=== PATIENT | male | born 1975 | race Caucasian/White ===

== ENCOUNTER → 2017-03-28 | Outpatient (CLI) | payer OTHER ==
[~2017-03-28] MED LIST: ACETTAB19 PO; HYDR-4330 PO
[2017-03-28 12:17] LABS: BASO % 0.8 %; BASO ABS # 0.05 K/uL (0-0.2); COMPLETE YES; EOS % 4.4 %; HEMATOCRIT 43.8 % (42-52); IG% 0.2 %; LYMPH % 27.6 %; LYMPH ABS # 1.65 K/uL (1.2-3.4); MEAN CELL VOLUME 96.9 fL (80-100); MEAN PLATELET VOLUME 10.4 fL (7.4-10.4); MONO % 9.4 %; NEUT % 57.6 %; PLATELET COUNT 198 K/uL (130-400); RED BLOOD COUNT 4.52 M/uL (4.7-6.1); WHITE BLOOD COUNT 5.97 K/uL (4.8-10.8)
[2017-03-28 12:26] LABS: BLOOD UREA NITROGEN 8 mg/dl (7-18); BUN/CREATININE RATIO 10.5 (10-20); CARBON DIOXIDE 29 mmol/L (21-32); CHLORIDE 105 mmol/L (98-107); GLUCOSE 77 mg/dl (70-99); POTASSIUM 4.3 mmol/L (3.5-5.1); SODIUM 141 mmol/L (136-145)
== END | disposition home or self-care (01) ==
LOC: C.LABBFT 07:51
PROVIDERS: ATTEND Nurse Practitioner
DX: L73.2 Hidradenitis suppurativa (principal)